=== PATIENT | female | born 1940 | race Caucasian/White ===

== ENCOUNTER → 2018-10-07 | Outpatient (CLI) | payer MEDICARE ==
[~2018-10-07] VITALS: Ht 162.6 cm; Wt 65.8 kg
--- NOTE | 2018-10-07 20:03 | Diagnostic Imaging Report ---
Ultrasound needle aspiration INDICATION: Thyroid nodule There are no prior studies available for comparison. The ultrasound examination of the right thyroid reveals that there is a 7 x 7 MM hypoechoic nodule. This area was biopsied by Dr. Rodriguez with ultrasound guidance. IMPRESSION: Ultrasound assistance was provided for Dr. Rodriguez. Dictated by: Dictated on workstation # [id number]
== END ==
LOC: RAD 10:56 → EDSEX 10:56
PROVIDERS: ATTEND Otolaryngology Otolaryngology/Facial Plastic Surgery
DX: E04.1 Nontoxic single thyroid nodule (principal)
CPT/HCPCS: 88173; 88305

== ENCOUNTER → 2019-01-28 | Outpatient (CLI) | payer MEDICARE ==
[~2019-01-28] VITALS: Ht 162.6 cm; Wt 64.5 kg
[~2019-01-28] MED LIST: LIDOCAINE 1% INJ 20 ML 20 ML VIAL INJ ONE
--- NOTE | 2019-01-28 13:39 | Diagnostic Imaging Report ---
INDICATION: Right thyroid nodule. Patient presents for ultrasound-guided fine-needle aspiration. FINDINGS: Patient was brought to the procedure room, placed on the table in the supine position. Ultrasound imaging over the right neck was performed to evaluate appropriate entry site. The right neck was then prepped and draped in the usual sterile fashion. A small amount of 1% lidocaine was utilized for local anesthesia. A total of four passes were made into the ill-defined nodule in the upper pole of the right lobe of the thyroid utilizing 25-gauge needles and fine-needle aspiration technique. Patient tolerated the procedure well and left the department in stable condition. IMPRESSION: Ultrasound-guided fine-needle aspiration of the ill-defined nodule in the upper pole of the right lobe of the thyroid. Pathology results are currently pending. Dictated by: Dictated on workstation # [id number]
== END ==
LOC: RAD 01-20 11:10
PROVIDERS: ATTEND Otolaryngology Otolaryngology/Facial Plastic Surgery
DX: E04.1 Nontoxic single thyroid nodule (principal)